=== PATIENT | male | born 1950 | race African-American/Black ===

== ENCOUNTER 2021-03-28 13:50 | Inpatient (IN) ==
[2021-03-28] MEDS ORDERED: ENOXAPARIN 100 MG/ML SYRINGE SUBCUT STA (14:39)
[2021-03-28] MEDS ORDERED: ASPIRIN 325 MG TABLET PO STA (14:39)
[2021-03-28 14:46] LABS: Basophils % 0.3 % (0.0-0.8); Eosinophils # 0.1 10*3/uL (0.0-0.87); Eosinophils % 1.3 % (0.00-10.9); Hematocrit 34.4 VOL% (42.0-52.0); Hemoglobin 11.8 GM/DL (14.0-18.0); Immature Granulocytes % 0.3 %; Immature Granulocytes Absolute 0.02 #; Lymphocytes # 2.6 10*3/uL (1.4-4.0); Lymphocytes % 38.2 % (21.2-54.2); Mean Corpuscular HGB Conc 34.3 GM/DL (32-36); Mean Corpuscular Volume 92.7 FL (87-102); Mean Platelet Volume 10.6 FL (9.6-12.0); Monocytes % 13.9 % (1.7-12.7); Platelet Count 162 T/CUMM (130-400); Red Blood Count 3.71 MC/CUMM (3.8-5.5); Red Cell Distribution Width 12.9 % (9.3-17.3); White Blood Count 6.9 T/CUMM (4-12)
[2021-03-28 14:58] LABS: Albumin 3.5 G/DL (3.4-5.0); Bilirubin,Total 0.5 MG/DL (0.2-1.0); Calcium 9.2 MG/DL (8.5-10.1); Osmolality,Calculated 276.8 MOS/KG (273-304); Potassium 3.3 MMOL/L (3.5-5.1); Total Protein 7.5 G/DL (6.4-8.2)
[2021-03-28] MEDS ORDERED: DEXTROSE 50% 25 GM/50 ML VIAL IV PRN (15:23)
[2021-03-28] MEDS ORDERED: ONDANSETRON 4 MG/2 ML VIAL IV PRN (15:23)
[2021-03-28] MEDS ORDERED: GLUCAGON 1 MG VIAL IM PRN (15:23)
[2021-03-28] MEDS ORDERED: ACETAMINOPHEN 325 MG TABLET PO PRN (15:23)
[2021-03-28] MEDS ORDERED: POTASSIUM CHLORIDE 20 MEQ TABLET PO STA (15:28)
[2021-03-28 15:38] LABS: INR 3.5
[2021-03-28 15:44] LABS: PT Patient Result 35.6 SECS (10.5-12.0)
[2021-03-28] MEDS ORDERED: NITROGLYCERIN SL 0.4 MG TABLET SL PRN (15:54)
[2021-03-28] MEDS: INSULIN REGULAR 100 UNIT/ML SUBCUT SCH (18:37)
[2021-03-28] MEDS: PHENYTOIN ER 100 MG CAPSULE PO SCH (21:00)
[2021-03-28] MEDS: PHENobarbital 30 MG TABLET PO SCH (21:00)
[2021-03-29 06:42] LABS: Basophils % 0.3 % (0.0-0.8); Eosinophils # 0.1 10*3/uL (0.0-0.87); Eosinophils % 1.9 % (0.00-10.9); Hematocrit 37.7 VOL% (42.0-52.0); Hemoglobin 12.8 GM/DL (14.0-18.0); Immature Granulocytes % 0.5 %; Immature Granulocytes Absolute 0.03 #; Lymphocytes # 2.2 10*3/uL (1.4-4.0); Lymphocytes % 37.2 % (21.2-54.2); Mean Corpuscular Volume 94.5 FL (87-102); Mean Platelet Volume 10.2 FL (9.6-12.0); Monocytes % 13.4 % (1.7-12.7); Neutrophils % 46.7 % (38.7-73.9); Platelet Count 180 T/CUMM (130-400); Red Blood Count 3.99 MC/CUMM (3.8-5.5); Red Cell Distribution Width 12.6 % (9.3-17.3); White Blood Count 5.8 T/CUMM (4-12)
[2021-03-29 06:52] LABS: INR 2.6; PT Patient Result 26.8 SECS (10.5-12.0)
[2021-03-29 07:11] LABS: Calcium 9.4 MG/DL (8.5-10.1); Osmolality,Calculated 279.5 MOS/KG (273-304); Potassium 3.9 MMOL/L (3.5-5.1); Risk Ratio 4.67
[2021-03-29] MEDS: INSULIN REGULAR 100 UNIT/ML SUBCUT SCH ×2 (08:18→17:34)
[2021-03-29] MEDS ORDERED: METOPROLOL SUCCINATE XL 100 MG TABLET PO SCH (09:00)
[2021-03-29] MEDS ORDERED: amLODIPine 5 MG TABLET PO SCH (10:30)
[2021-03-29] MEDS: OLMESARTAN 20 MG TABLET PO SCH (12:09)
[2021-03-29] MEDS: ASPIRIN 325 MG TABLET PO SCH (12:25)
[2021-03-29] MEDS: FENOFIBRATE 160 MG TABLET PO SCH (12:26)
[2021-03-29] MEDS: PHENYTOIN ER 100 MG CAPSULE PO SCH (12:27)
[2021-03-29] MEDS: PHENobarbital 30 MG TABLET PO SCH (12:28)
[2021-03-29] MEDS: CHLORTHALIDONE 25 MG TABLET PO SCH (12:29)
[2021-03-29] MEDS ORDERED: SODIUM CHLORIDE 0.9% 1,000 ML IV SCH (19:00)
[2021-03-30] MEDS: PHENYTOIN ER 100 MG CAPSULE PO SCH ×3 (00:34→20:19)
[2021-03-30] MEDS: PHENobarbital 30 MG TABLET PO SCH ×2 (00:34→09:54)
[2021-03-30 06:34] LABS: INR 1.8; PT Patient Result 19.4 SECS (10.5-12.0)
[2021-03-30 06:39] LABS: Calcium 9.2 MG/DL (8.5-10.1); Osmolality,Calculated 276.8 MOS/KG (273-304); Potassium 3.6 MMOL/L (3.5-5.1)
[2021-03-30 06:42] LABS: Basophils % 0.4 % (0.0-0.8); Eosinophils # 0.1 10*3/uL (0.0-0.87); Eosinophils % 2.2 % (0.00-10.9); Hematocrit 35.7 VOL% (42.0-52.0); Hemoglobin 12.6 GM/DL (14.0-18.0); Immature Granulocytes % 0.4 %; Immature Granulocytes Absolute 0.02 #; Lymphocytes # 2.1 10*3/uL (1.4-4.0); Lymphocytes % 36.9 % (21.2-54.2); Mean Corpuscular HGB Conc 35.3 GM/DL (32-36); Mean Corpuscular Volume 91.1 FL (87-102); Mean Platelet Volume 10.3 FL (9.6-12.0); Monocytes % 16.5 % (1.7-12.7); Neutrophils % 43.6 % (38.7-73.9); Platelet Count 189 T/CUMM (130-400); Red Blood Count 3.92 MC/CUMM (3.8-5.5); Red Cell Distribution Width 12.5 % (9.3-17.3); White Blood Count 5.6 T/CUMM (4-12)
[2021-03-30 07:42] LABS: Eosinophils 3 % (0-10); Lymphocytes 38 % (20-55); Segmented Neutrophils 45 % (50-85); Total Cells Counted 100
[2021-03-30 07:43] LABS: Atypical Lymphocytes Few; Hypochromasia 1+; Microcytosis Slight; Platelet Estimate Adequate
[2021-03-30] MEDS: INSULIN REGULAR 100 UNIT/ML SUBCUT SCH ×2 (08:22→16:02)
[2021-03-30] MEDS: hydrALAZINE 25 MG TABLET PO SCH ×3 (09:52→20:19)
[2021-03-30] MEDS: amLODIPine 10 MG TABLET PO SCH (09:52)
[2021-03-30] MEDS: OLMESARTAN 20 MG TABLET PO SCH (09:52)
[2021-03-30] MEDS: ASPIRIN 325 MG TABLET PO SCH (09:52)
[2021-03-30] MEDS: METOPROLOL SUCCINATE XL 50 MG TABLET PO SCH (09:53)
[2021-03-30] MEDS: CHLORTHALIDONE 25 MG TABLET PO SCH (09:53)
[2021-03-30] MEDS: FENOFIBRATE 160 MG TABLET PO SCH (09:53)
[2021-03-30] MEDS ORDERED: DIAZEPAM 5 MG TABLET PO ONE (11:02)
[2021-03-30] MEDS ORDERED: diphenhydrAMINE CAP 25 MG CAPSULE PO ONE (11:02)
[2021-03-30] MEDS ORDERED: MAGNESIUM SULF RIDER 2 GM/50 ML PREMIX IV PRN (11:02)
[2021-03-30] MEDS ORDERED: POTASSIUM CHLORIDE RIDER 10 MEQ in PREMIX 1 EACH IV PRN (11:02)
[2021-03-30] MEDS ORDERED: LIDOCAINE 1% 20 ML VIAL ONE (12:04)
[2021-03-30] MEDS ORDERED: fentaNYL 100 MCG/2 ML VIAL ONE (12:09)
[2021-03-30] MEDS ORDERED: MIDAZOLAM 2 MG/2 ML VIAL ONE (12:09)
[2021-03-30] MEDS ORDERED: ASPIRIN CHEW 81 MG TABLET PO ONE (14:08)
[2021-03-30 14:09] LABS: HIV Antigen/Antibody Result Nonreactive (Nonreactive); Hepatitis B Surface Ag Quant < 0.10 Index; Hepatitis B Surface Ag Result Non-Reactive (NonReactive); Hepatitis C Virus Ab Quant 0.13 Index; Hepatitis C Virus Ab Result Non-Reactive (NonReactive)
[2021-03-30] MEDS: PHENOBARBITAL 60 MG PO SCH (20:18)
[2021-03-31 06:09] LABS: Basophils % 0.6 % (0.0-0.8); Eosinophils # 0.2 10*3/uL (0.0-0.87); Eosinophils % 2.9 % (0.00-10.9); Hematocrit 37.7 VOL% (42.0-52.0); Hemoglobin 12.8 GM/DL (14.0-18.0); Immature Granulocytes % 0.6 %; Immature Granulocytes Absolute 0.03 #; Lymphocytes # 1.7 10*3/uL (1.4-4.0); Lymphocytes % 30.5 % (21.2-54.2); Mean Platelet Volume 9.9 FL (9.6-12.0); Monocytes % 14.5 % (1.7-12.7); Neutrophils % 50.9 % (38.7-73.9); Platelet Count 219 T/CUMM (130-400); Red Blood Count 4.01 MC/CUMM (3.8-5.5); Red Cell Distribution Width 12.7 % (9.3-17.3); White Blood Count 5.5 T/CUMM (4-12)
[2021-03-31 06:12] LABS: INR 1.4; PT Patient Result 15.1 SECS (10.5-12.0)
[2021-03-31 06:23] LABS: Calcium 9.1 MG/DL (8.5-10.1); Potassium 3.7 MMOL/L (3.5-5.1)
[2021-03-31 08:00] LABS: Eosinophils 1 % (0-10); Lymphocytes 35 % (20-55); Segmented Neutrophils 62 % (50-85); Total Cells Counted 100
[2021-03-31 08:01] LABS: Atypical Lymphocytes Few; Platelet Estimate Adequate
[2021-03-31] MEDS: INSULIN REGULAR 100 UNIT/ML SUBCUT SCH (08:24)
[2021-03-31] MEDS ORDERED: traMADol 50 MG TABLET PO PRN (09:13)
[2021-03-31] MEDS ORDERED: cloNIDine 0.1 MG TABLET PO PRN (09:13)
[2021-03-31] MEDS ORDERED: ASPIRIN EC 81 MG TABLET PO SCH (09:30)
[2021-03-31] MEDS: hydrALAZINE 25 MG TABLET PO SCH (09:56)
[2021-03-31] MEDS: OLMESARTAN 20 MG TABLET PO SCH (09:56)
[2021-03-31] MEDS: amLODIPine 10 MG TABLET PO SCH (09:56)
[2021-03-31] MEDS: METOPROLOL SUCCINATE XL 50 MG TABLET PO SCH (10:18)
[2021-03-31] MEDS: FENOFIBRATE 160 MG TABLET PO SCH (10:18)
[2021-03-31] MEDS: CHLORTHALIDONE 25 MG TABLET PO SCH (10:19)
[2021-03-31] MEDS: PHENYTOIN ER 100 MG CAPSULE PO SCH (10:20)
[2021-03-31] MEDS: PHENOBARBITAL 60 MG PO SCH (10:21)
[2021-03-31 12:26] VITALS: BP 138/58
[2021-03-31] MEDS ORDERED: REPAGLINIDE 1 MG TABLET PO SCH (16:30)
[2021-03-31] MEDS ORDERED: WARFARIN 5 MG TABLET PO SCH (18:00)
[2021-03-31] MEDS ORDERED: PHENYTOIN ER 100 MG CAPSULE PO SCH (21:00)
[2021-03-31] MEDS ORDERED: PHENobarbital 30 MG TABLET PO SCH (21:00)
[2021-03-31] MEDS ORDERED: GLIMEPIRIDE 4 MG TABLET PO SCH (21:00)
[2021-04-01] MEDS ORDERED: DOXAZOSIN 1 MG TABLET PO SCH (09:00)
[2021-04-01] MEDS ORDERED: MAGNESIUM CHLORIDE 64 MG TABLET PO SCH (09:00)
== END 2021-03-31 13:49 | disposition home or self-care (01) | DRG 282 ==
LOC: N.EDINP 13:50 → N.ED 13:50 → N.TELEN 16:15
PROVIDERS: ADMIT Internal Medicine Cardiovascular Disease; ATTEND Internal Medicine Cardiovascular Disease